=== PATIENT | male | born 1965 | race Caucasian/White ===

== ENCOUNTER 2018-06-01 07:32 | Observation (INO) ==
--- NOTE | 2018-06-01 07:53 | Emergency Department Note ---
Disposition Forms: ED Satisfaction Letter General Adult HPI - General Chief complaint: ED Chest Pain Stated complaint: Chest Pains Time Seen by Provider: 06/01/18 07:35 Source: patient - History of Present Illness Pain Scale: 3 - Related Data Home Medications Medication Instructions Recorded Confirmed Atorvastatin Calcium 05/05/18 Diltiazem 180 mg PO ONCE 05/05/18 05/05/18 Finasteride 5 mg PO DAILY 05/05/18 05/05/18 Ibuprofen 800 mg PO TIDWM 05/05/18 05/05/18 Lisinopril-HCTZ 20-12.5 12.5 - 20 mg PO ONCE 05/05/18 05/05/18 Methocarbamol 750 mg PO ONCE 05/05/18 05/05/18 Tamsulosin HCl 0.4 mg PO ONCE 05/05/18 05/05/18 Previous Rx's Medication Instructions Recorded Albuterol Sulfate [Albuterol 2 puff IH Q4HR #1 hfa.aer.ad 05/13/18 Inhaler] Promethazine/Dextromethorphan 5 ml PO Q6HR PRN #120 ml 05/13/18 [Promethazine-Dm Syrup] Allergies Allergy/AdvReac Type Severity Reaction Status Date / Time No Known Allergies Allergy Verified 05/13/18 08:41 Past Medical History - Past Medical History Medical history: Reports: hypertension - Social History Smoking Status: Never smoker Smokeless Tobacco Status: No Alcohol use: Reports: none Drug use: Reports: none Course Vital Signs Temperature 97.9 F 06/01/18 07:36 Pulse Rate 74 06/01/18 07:36 Respiratory Rate 14 06/01/18 07:36 Blood Pressure 154/96 06/01/18 07:36 O2 Sat by Pulse Oximetry 99 06/01/18 07:36 Temperature 97.9 F 06/01/18 07:36 Pulse Rate 74 06/01/18 07:36 Respiratory Rate 14 06/01/18 07:36 Blood Pressure 154/96 06/01/18 07:36 O2 Sat by Pulse Oximetry 99 06/01/18 07:36 Oxygen Delivery Oxygen Delivery Room Air Medical Decision Making - Lab Data Result diagrams: 06/01/18 07:36 06/01/18 07:36 Lab Results 06/01/18 06/01/18 06/01/18 Range/Units 07:36 07:36 07:58 WBC 15.3 H (4.3-11.1) K/mcL RBC 5.87 H (4.19-5.50) M/mcL Hgb 17.6 H (12.9-16.9) g/dL Hct 52.1 H (37.5-50.1) % MCV 88.8 (83.0-100.0) fL MCH 30.0 (28.0-33.3) pg MCHC 33.8 (31.6-35.5) g/dL RDW 14.7 H (11.5-14.5) % Plt Count 203 (140-400) K/mcL MPV 9.0 L (9.4-12.4) fL Immature Gran % 2.2 (0-4) % Seg Neutrophils % 75.3 % Lymphocytes % 14.9 % Monocytes % 5.8 % Eosinophils % 1.0 % Basophils % 0.8 % Neutrophils # 11.5 H (1.6-8.9) K/mcL Lymphocytes # 2.3 (0.6-4.6) K/mcL Monocytes # 0.9 (0.0-1.3) K/mcL Eosinophils # 0.2 (0.0-0.6) K/mcL Basophils # 0.1 (0.0-0.2) K/mcL Sodium 137 (136-145) mEq/L Potassium 4.1 (3.5-5.1) mEq/L Chloride 102 (98-107) mEq/L Carbon Dioxide 26 (23-29) mEq/L BUN 22 H (6-20) mg/dL Creatinine 1.02 (0.70-1.30) mg/dL Est GFR ( Amer) > 60 (> 60) Est GFR (Non-Af Amer) > 60 (> 60) BUN/Creatinine Ratio 22 (6-26) Glucose 145 H (70-105) mg/dL Calculated Osmolality 290 (280-300) Calcium 9.0 (8.6-10.3) mg/dL Troponin I < 0.03 (< 0.04) ng/mL B-Natriuretic Peptide 17 (Less than 100) pg/mL Lipase 15 (11-82) Units/L Attestation Statement - Attestation Attestation: I examined this patient and my medical decision-making was reviewed with the Resident Physician. I agree with the documented findings, disposition and treatment plan as described except to the extent set forth below. qq
[2018-06-01 08:13] LABS: Basophils # 0.1 K/mcL (0.0-0.2); Basophils % 0.8 %; Eosinophils # 0.2 K/mcL (0.0-0.6); Hematocrit 52.1 % (37.5-50.1); Hemoglobin 17.6 g/dL (12.9-16.9); Immature Granulocytes % 2.2 % (0-4); Lymphocytes # 2.3 K/mcL (0.6-4.6); Lymphocytes % 14.9 %; Mean Corpuscular HGB Conc 33.8 g/dL (31.6-35.5); Mean Corpuscular Volume 88.8 fL (83.0-100.0); Monocytes # 0.9 K/mcL (0.0-1.3); Monocytes % 5.8 %; Neutrophils # 11.5 K/mcL (1.6-8.9); Platelet Count 203 K/mcL (140-400); Red Blood Count 5.87 M/mcL (4.19-5.50); Red Cell Distribution Width 14.7 % (11.5-14.5); Segmented Neutrophils % 75.3 %
--- NOTE | 2018-06-01 08:15 | Emergency Department Note ---
Disposition Clinical Impression: Chest pain Qualifiers: Chest pain type: unspecified Qualified Code(s): R07.9 - Chest pain, unspecified Disposition: Admitted As Inpatient Condition: Fair General Adult HPI - General Chief complaint: ED Chest Pain Stated complaint: Chest Pains Time Seen by Provider: 06/01/18 07:35 Source: patient Mode of arrival: private vehicle Limitations: no limitations Nursing Notes Reviewed: Yes Vital Signs Reviewed: Yes - History of Present Illness HPI Narrative: Pt is a 52M with Pmhx HTN, chronic cough, HLPD, that was on his way to a bronchoscopy this morning when he experienced chest pain that lasted between 2-5 minutes with three separate episodes. He states that he has had these episodes before, but they are increasing in frequency. The last time he had these problems was Friday. He describes the pain as sharp in nature, located in the epigastrum, radiation into the bottom of his chest. He denies associated symptoms of nausea/vomiting, diaphoresis, lightheadedness. He denies lightheadedness with the pain specifically, but he states that he has been getting lightheaded frequently. He denies hx of smoking, alcohol, or illicit drugs. He states that his whole family has heart disease and many have had heart attacks. He denies pain at this moment. Pain Scale: 3 - Related Data Home Medications Medication Instructions Recorded Confirmed Atorvastatin Calcium 05/05/18 Diltiazem 180 mg PO ONCE 05/05/18 05/05/18 Finasteride 5 mg PO DAILY 05/05/18 05/05/18 Ibuprofen 800 mg PO TIDWM 05/05/18 05/05/18 Lisinopril-HCTZ 20-12.5 12.5 - 20 mg PO ONCE 05/05/18 05/05/18 Methocarbamol 750 mg PO ONCE 05/05/18 05/05/18 Tamsulosin HCl 0.4 mg PO ONCE 05/05/18 05/05/18 Previous Rx's Medication Instructions Recorded Albuterol Sulfate [Albuterol 2 puff IH Q4HR #1 hfa.aer.ad 05/13/18 Inhaler] Promethazine/Dextromethorphan 5 ml PO Q6HR PRN #120 ml 05/13/18 [Promethazine-Dm Syrup] Allergies Allergy/AdvReac Type Severity Reaction Status Date / Time No Known Allergies Allergy Verified 05/13/18 08:41 Review of Systems: All systems ED: reviewed and negative except as stated. Constitutional: Denies: chills Reports: fever/feeling warm ENT ED: Denies: ear pain, throat pain Cardiovascular: Denies: palpitations Reports: chest pain, leg swelling Respiratory: Reports: dry cough, dyspnea Gastrointestinal: Denies: abdominal pain, nausea, vomiting, diarrhea, constipation Genitourinary: Denies: urgency, dysuria, frequency Musculoskeletal: Reports: chronic back pain, chronic neck pain Integumentary: Denies: rash, abrasion Neurological: Denies: headache, weakness, numbness, paresthesias Psychiatric: Denies: anxiety, depression Endocrine: Denies: fatigue, heat or cold intolerance Hematological/Lymphatic: Denies: easy bleeding, easy bruising Allergic/Immunologic: Denies: facial swelling, urticaria Past Medical History - Past Medical History Medical history: Reports: hypertension - Social History Smoking Status: Never smoker Smokeless Tobacco Status: No Alcohol use: Reports: none Drug use: Reports: none Physical Exam General: A&O x 3. No acute distress. Well developed, well nourished, obese male. Head: atraumatic, normocephalic. ENT: No conjunctival injection, no scleral icterus. PERRLA. EOMI. Oropharynx non- erythematous. mucous membranes moist. Neuro: No focal deficits, no speech deficit, no facial droop, mentating well. BUE/BLE Str 5/5. Pulm: Lungs CTAB A/P. No wheezes, rales, ronchi. Cardio: RRR no m/r/g. Chest not tender to palpation. Abd: Soft, rounded. Normoactive bowel sounds. Non-tender to palpation. No guarding. Non rigid. Extremities: Radial pulses 2+ gordo, dorsalis pedis/posterior tibialis 2+ gordo. [place] LE 1+ pitting edema. No cyanosis, clubbing. Skin: warm, dry, intact. No rashes. Psych: Appropriate mood and affect. Answers questions appropriately. Cooperative with exam. Course Course Narrative: Pt has a hx of increasing frequency CP while at rest. Suspect unstable angina, but Ddx includes (but is not limited to): ACS, CHF, pancreatitis Workup to include: CBC, BMP, BNP, Lipase, EKG, CXR Vital Signs Temperature 97.9 F 06/01/18 07:36 Pulse Rate 74 06/01/18 07:36 Respiratory Rate 14 06/01/18 07:36 Blood Pressure 154/96 06/01/18 07:36 O2 Sat by Pulse Oximetry 99 06/01/18 07:36 Temperature 97.9 F 06/01/18 07:36 Pulse Rate 73 06/01/18 11:07 Respiratory Rate 16 06/01/18 11:07 Blood Pressure 123/67 06/01/18 11:07 O2 Sat by Pulse Oximetry 97 06/01/18 11:07 Oxygen Delivery Oxygen Delivery Room Air Medical Decision Making - MDM Narrative Medical decision making narrative: Pts workup failed to demonstrate cause of his pain - CXR was normal, troponin was undetectable, EKG did not show any signs concerning for ischemia. His chest pain did not recur while in the emergency department. However, given his story and strong family hx of cardiac issues, it was thought that he could benefit from further inpatient workup. He was admitted to hospitalist, Dr. Smith, who agreed to admit him to their service. Skiing Instructor Dr. Lopez was consulted and he agreed to see the patient. Patient was given an opportunity to ask questions at bedside and all of their concerns were addressed. Patient verbalized understanding and agreement with plan of care. Pt remained stable while in the department. - Medical Records Medical records reviewed: Yes I reviewed the patient's medical records. - Lab Data Lab results reviewed: Yes I reviewed the patient's lab results. Result diagrams: 06/01/18 07:36 06/01/18 07:36 Lab Results 06/01/18 06/01/18 06/01/18 Range/Units 07:36 07:36 07:58 WBC 15.3 H (4.3-11.1) K/mcL RBC 5.87 H (4.19-5.50) M/mcL Hgb 17.6 H (12.9-16.9) g/dL Hct 52.1 H (37.5-50.1) % MCV 88.8 (83.0-100.0) fL MCH 30.0 (28.0-33.3) pg MCHC 33.8 (31.6-35.5) g/dL RDW 14.7 H (11.5-14.5) % Plt Count 203 (140-400) K/mcL MPV 9.0 L (9.4-12.4) fL Immature Gran % 2.2 (0-4) % Seg Neutrophils % 75.3 % Lymphocytes % 14.9 % Monocytes % 5.8 % Eosinophils % 1.0 % Basophils % 0.8 % Neutrophils # 11.5 H (1.6-8.9) K/mcL Lymphocytes # 2.3 (0.6-4.6) K/mcL Monocytes # 0.9 (0.0-1.3) K/mcL Eosinophils # 0.2 (0.0-0.6) K/mcL Basophils # 0.1 (0.0-0.2) K/mcL Sodium 137 (136-145) mEq/L Potassium 4.1 (3.5-5.1) mEq/L Chloride 102 (98-107) mEq/L Carbon Dioxide 26 (23-29) mEq/L BUN 22 H (6-20) mg/dL Creatinine 1.02 (0.70-1.30) mg/dL Est GFR ( Amer) > 60 (> 60) Est GFR (Non-Af Amer) > 60 (> 60) BUN/Creatinine Ratio 22 (6-26) Glucose 145 H (70-105) mg/dL Calculated Osmolality 290 (280-300) Calcium 9.0 (8.6-10.3) mg/dL Total Bilirubin 0.4 (0.3-1.0) mg/dL Direct Bilirubin TNP Indirect Bilirubin Test Not Performed AST TNP ALT 52 (7-52) Units/L Alkaline Phosphatase 42 (34-104) Units/L Troponin I < 0.03 (< 0.04) ng/mL B-Natriuretic Peptide 17 (Less than 100) pg/mL Serum Total Protein 6.5 (6.4-8.9) g/dL Albumin 4.0 (3.5-5.7) g/dL Globulin 2.5 (2.4-3.5) g/dL Albumin/Globulin Ratio 1.6 (1.1-2.2) Lipase 15 (11-82) Units/L Urine Color (Yellow) Urine Clarity (Clear) Urine pH (5.0-8.0) pH Units Ur Specific [place] (1.010-1.025) Urine Protein (Neg-Trace) mg/dL Urine Glucose (UA) (Normal) mg/dL Urine Ketones (Negative) mg/dL Urine Blood (Negative) Urine Nitrite (Negative) Urine Bilirubin (Negative) Urine Urobilinogen (Normal) mg/dL Ur Leukocyte Esterase (Negative) Ur Culture Indicated? (NO) 06/01/18 Range/Units 09:22 WBC (4.3-11.1) K/mcL RBC (4.19-5.50) M/mcL Hgb (12.9-16.9) g/dL Hct (37.5-50.1) % MCV (83.0-100.0) fL MCH (28.0-33.3) pg MCHC (31.6-35.5) g/dL RDW (11.5-14.5) % Plt Count (140-400) K/mcL MPV (9.4-12.4) fL Immature Gran % (0-4) % Seg Neutrophils % % Lymphocytes % % Monocytes % % Eosinophils % % Basophils % % Neutrophils # (1.6-8.9) K/mcL Lymphocytes # (0.6-4.6) K/mcL Monocytes # (0.0-1.3) K/mcL Eosinophils # (0.0-0.6) K/mcL Basophils # (0.0-0.2) K/mcL Sodium (136-145) mEq/L Potassium (3.5-5.1) mEq/L Chloride (98-107) mEq/L Carbon Dioxide (23-29) mEq/L BUN (6-20) mg/dL Creatinine (0.70-1.30) mg/dL Est GFR ( Amer) (> 60) Est GFR (Non-Af Amer) (> 60) BUN/Creatinine Ratio (6-26) Glucose (70-105) mg/dL Calculated Osmolality (280-300) Calcium (8.6-10.3) mg/dL Total Bilirubin (0.3-1.0) mg/dL Direct Bilirubin Indirect Bilirubin AST ALT (7-52) Units/L Alkaline Phosphatase (34-104) Units/L Troponin I (< 0.04) ng/mL B-Natriuretic Peptide (Less than 100) pg/mL Serum Total Protein (6.4-8.9) g/dL Albumin (3.5-5.7) g/dL Globulin (2.4-3.5) g/dL Albumin/Globulin Ratio (1.1-2.2) Lipase (11-82) Units/L Urine Color Yellow (Yellow) Urine Clarity Clear (Clear) Urine pH 6.0 (5.0-8.0) pH Units Ur Specific [place] 1.016 (1.010-1.025) Urine Protein Negative (Neg-Trace) mg/dL Urine Glucose (UA) Normal (Normal) mg/dL Urine Ketones Negative (Negative) mg/dL Urine Blood Negative (Negative) Urine Nitrite Negative (Negative) Urine Bilirubin Negative (Negative) Urine Urobilinogen Normal (Normal) mg/dL Ur Leukocyte Esterase Negative (Negative) Ur Culture Indicated? NO (NO) - Radiology Data Radiology results reviewed: Yes I reviewed the patient's radiology results. Chest X-Ray 06/01/18 07:36 IMPRESSION: No acute process. D/ / Kleber Ackerman MD / Kleber Ackerman MD Interpreting Provider: Kleber Ackerman MD Chest CTA 06/01/18 09:05 IMPRESSION: Negative for pulmonary embolus. Minimal scarring or atelectasis in the lingula D/ / Praneeth Garcia MD / Praneeth Garcia MD Interpreting Provider: Praneeth Garcia MD - EKG Data EKG #1 EKG attestation: Yes I reviewed and interpreted this EKG. EKG results narrative: HR 82, rhythm sinus, axis normal. OH 142, QRS 77, QTc 415. No evidence of ST elevation or depression. No criteria for LVH. Heart Score - Score History: Moderately Suspicious EKG: Normal Age: 45-65 Risk Factors: Equal/Greater than 3 risk factor or history of atherosclerotic disease Troponin: Less than normal limit HEART Score Total: 4
[2018-06-01] MEDS ORDERED: Aspirin 325 MG TABLET PO ONE (08:19)
[2018-06-01 08:35] LABS: BUN/Creatinine Ratio 22 (6-26); Blood Urea Nitrogen 22 mg/dL (6-20); Carbon Dioxide 26 mEq/L (23-29); Chloride 102 mEq/L (98-107); Glucose 145 mg/dL (70-105); Lipase 15 Units/L (11-82); Osmolality,Calculated 290 (280-300); Potassium 4.1 mEq/L (3.5-5.1); Sodium 137 mEq/L (136-145); Troponin I < 0.03 ng/mL (< 0.04); eGFR For Non-African Americans > 60 (> 60)
--- NOTE | 2018-06-01 08:59 | Emergency Department Note ---
Disposition Clinical Impression: Chest pain Qualifiers: Chest pain type: unspecified Qualified Code(s): R07.9 - Chest pain, unspecified Disposition: Admitted As Inpatient Condition: Fair General Adult HPI - General Chief complaint: ED Chest Pain Stated complaint: Chest Pains Time Seen by Provider: 06/01/18 07:35 Source: patient Mode of arrival: private vehicle Limitations: no limitations - History of Present Illness Pain Scale: 3 - Related Data Home Medications Medication Instructions Recorded Confirmed Atorvastatin Calcium 20 mg PO DAILY 05/05/18 Diltiazem 180 mg PO ONCE 05/05/18 05/05/18 Finasteride 5 mg PO DAILY 05/05/18 05/05/18 Ibuprofen 800 mg PO TIDWM 05/05/18 05/05/18 Lisinopril-HCTZ 20-12.5 12.5 - 20 mg PO ONCE 05/05/18 05/05/18 Methocarbamol 750 mg PO ONCE 05/05/18 05/05/18 Tamsulosin HCl 0.4 mg PO ONCE 05/05/18 05/05/18 Previous Rx's Medication Instructions Recorded Albuterol Sulfate [Albuterol 2 puff IH Q4HR #1 hfa.aer.ad 05/13/18 Inhaler] Promethazine/Dextromethorphan 5 ml PO Q6HR PRN #120 ml 05/13/18 [Promethazine-Dm Syrup] Allergies Allergy/AdvReac Type Severity Reaction Status Date / Time No Known Allergies Allergy Verified 05/13/18 08:41 Past Medical History - Past Medical History Medical history: Reports: hypertension - Social History Smoking Status: Never smoker Smokeless Tobacco Status: No Alcohol use: Reports: none Drug use: Reports: none Physical Exam - General Limitations: no limitations Course Vital Signs Temperature 97.9 F 06/01/18 07:36 Pulse Rate 74 06/01/18 07:36 Respiratory Rate 14 06/01/18 07:36 Blood Pressure 154/96 06/01/18 07:36 O2 Sat by Pulse Oximetry 99 06/01/18 07:36 Temperature 97.9 F 06/01/18 07:36 Pulse Rate 73 06/01/18 11:07 Respiratory Rate 16 06/01/18 12:35 Blood Pressure 120/79 06/01/18 12:35 O2 Sat by Pulse Oximetry 97 06/01/18 11:07 Oxygen Delivery Oxygen Delivery Room Air Medical Decision Making - Lab Data Result diagrams: 06/01/18 07:36 06/01/18 07:36 Lab Results 06/01/18 06/01/18 06/01/18 Range/Units 07:36 07:36 07:58 WBC 15.3 H (4.3-11.1) K/mcL RBC 5.87 H (4.19-5.50) M/mcL Hgb 17.6 H (12.9-16.9) g/dL Hct 52.1 H (37.5-50.1) % MCV 88.8 (83.0-100.0) fL MCH 30.0 (28.0-33.3) pg MCHC 33.8 (31.6-35.5) g/dL RDW 14.7 H (11.5-14.5) % Plt Count 203 (140-400) K/mcL MPV 9.0 L (9.4-12.4) fL Immature Gran % 2.2 (0-4) % Seg Neutrophils % 75.3 % Lymphocytes % 14.9 % Monocytes % 5.8 % Eosinophils % 1.0 % Basophils % 0.8 % Neutrophils # 11.5 H (1.6-8.9) K/mcL Lymphocytes # 2.3 (0.6-4.6) K/mcL Monocytes # 0.9 (0.0-1.3) K/mcL Eosinophils # 0.2 (0.0-0.6) K/mcL Basophils # 0.1 (0.0-0.2) K/mcL Sodium 137 (136-145) mEq/L Potassium 4.1 (3.5-5.1) mEq/L Chloride 102 (98-107) mEq/L Carbon Dioxide 26 (23-29) mEq/L BUN 22 H (6-20) mg/dL Creatinine 1.02 (0.70-1.30) mg/dL Est GFR ( Amer) > 60 (> 60) Est GFR (Non-Af Amer) > 60 (> 60) BUN/Creatinine Ratio 22 (6-26) Glucose 145 H (70-105) mg/dL Calculated Osmolality 290 (280-300) Calcium 9.0 (8.6-10.3) mg/dL Total Bilirubin 0.4 (0.3-1.0) mg/dL Direct Bilirubin TNP Indirect Bilirubin Test Not Performed AST TNP ALT 52 (7-52) Units/L Alkaline Phosphatase 42 (34-104) Units/L Troponin I < 0.03 (< 0.04) ng/mL B-Natriuretic Peptide 17 (Less than 100) pg/mL Serum Total Protein 6.5 (6.4-8.9) g/dL Albumin 4.0 (3.5-5.7) g/dL Globulin 2.5 (2.4-3.5) g/dL Albumin/Globulin Ratio 1.6 (1.1-2.2) Lipase 15 (11-82) Units/L Urine Color (Yellow) Urine Clarity (Clear) Urine pH (5.0-8.0) pH Units Ur Specific [place] (1.010-1.025) Urine Protein (Neg-Trace) mg/dL Urine Glucose (UA) (Normal) mg/dL Urine Ketones (Negative) mg/dL Urine Blood (Negative) Urine Nitrite (Negative) Urine Bilirubin (Negative) Urine Urobilinogen (Normal) mg/dL Ur Leukocyte Esterase (Negative) Ur Culture Indicated? (NO) 06/01/18 Range/Units 09:22 WBC (4.3-11.1) K/mcL RBC (4.19-5.50) M/mcL Hgb (12.9-16.9) g/dL Hct (37.5-50.1) % MCV (83.0-100.0) fL MCH (28.0-33.3) pg MCHC (31.6-35.5) g/dL RDW (11.5-14.5) % Plt Count (140-400) K/mcL MPV (9.4-12.4) fL Immature Gran % (0-4) % Seg Neutrophils % % Lymphocytes % % Monocytes % % Eosinophils % % Basophils % % Neutrophils # (1.6-8.9) K/mcL Lymphocytes # (0.6-4.6) K/mcL Monocytes # (0.0-1.3) K/mcL Eosinophils # (0.0-0.6) K/mcL Basophils # (0.0-0.2) K/mcL Sodium (136-145) mEq/L Potassium (3.5-5.1) mEq/L Chloride (98-107) mEq/L Carbon Dioxide (23-29) mEq/L BUN (6-20) mg/dL Creatinine (0.70-1.30) mg/dL Est GFR ( Amer) (> 60) Est GFR (Non-Af Amer) (> 60) BUN/Creatinine Ratio (6-26) Glucose (70-105) mg/dL Calculated Osmolality (280-300) Calcium (8.6-10.3) mg/dL Total Bilirubin (0.3-1.0) mg/dL Direct Bilirubin Indirect Bilirubin AST ALT (7-52) Units/L Alkaline Phosphatase (34-104) Units/L Troponin I (< 0.04) ng/mL B-Natriuretic Peptide (Less than 100) pg/mL Serum Total Protein (6.4-8.9) g/dL Albumin (3.5-5.7) g/dL Globulin (2.4-3.5) g/dL Albumin/Globulin Ratio (1.1-2.2) Lipase (11-82) Units/L Urine Color Yellow (Yellow) Urine Clarity Clear (Clear) Urine pH 6.0 (5.0-8.0) pH Units Ur Specific [place] 1.016 (1.010-1.025) Urine Protein Negative (Neg-Trace) mg/dL Urine Glucose (UA) Normal (Normal) mg/dL Urine Ketones Negative (Negative) mg/dL Urine Blood Negative (Negative) Urine Nitrite Negative (Negative) Urine Bilirubin Negative (Negative) Urine Urobilinogen Normal (Normal) mg/dL Ur Leukocyte Esterase Negative (Negative) Ur Culture Indicated? NO (NO) Attestation Statement - Attestation Attestation: I examined this patient and my medical decision-making was reviewed with the Resident Physician. I agree with the documented findings, disposition and treatment plan as described except to the extent set forth below. Patient presents to the ED with a chief complaint of chest pain. Patient describes this sharp pain in his lower chest that shoots to his jaws. He is been having episodes of increase in frequency. Patient went to have an out patient test done today and experienced the pain going home. Patient is also being worked up for a lung problem and is scheduled for bronchoscopy tomorrow. He is in no acute distress on examination. Lungs sounds diminished. Heart regular. He does have some pedal edema. Plan. Cardiac workup. Troponin negative. Patient has a heart score 4. Admitted for further cardiac workup. EKG normal sinus at 82. Normal ST segments. Normal T waves. Normal axis. QTC 4:15. Unchanged from prior EKG.
[2018-06-01 09:53] LABS: Bilirubin,Urine Negative (Negative); Blood,Urine Negative (Negative); Clarity,Urine Clear (Clear); Color,Urine Yellow (Yellow); Glucose,Urine (UA) Normal (Normal); Ketones,Urine Negative (Negative); Leukocyte Esterase,Urine Negative (Negative); Nitrite,Urine Negative (Negative); Protein,Urine Negative (Neg-Trace); Specific Gravity,Urine 1.016 (1.010-1.025); Urobilinogen,Urine Normal (Normal)
[2018-06-01] MEDS: Isovue-370 500 ML BOTTLE IVP ONE (09:56)
[2018-06-01 10:11] LABS: Alanine Aminotransferase 52 Units/L (7-52); Albumin/Globulin Ratio 1.6 (1.1-2.2); Alkaline Phosphatase 42 Units/L (34-104); Bilirubin,Total 0.4 mg/dL (0.3-1.0); Globulin 2.5 g/dL (2.4-3.5); Total Protein 6.5 g/dL (6.4-8.9)
[2018-06-01] MEDS ORDERED: Naloxone 0.4 MG/ML INJ IVP PRN (12:34)
[2018-06-01] MEDS ORDERED: Acetaminophen 325 MG TABLET PO PRN (12:34)
[2018-06-01] MEDS ORDERED: GI Cocktail 40 ML EACH PO ONE (12:36)
--- NOTE | 2018-06-01 13:08 | Internal Med History&Physical ---
Date of Encounter: 06/01/18 Time of Encounter: 11:45 Internal Medicine - H&P: HPI Chief complaint: Chest pain Admitted From: Emergency Dept Plans for Post Hospital Care: Home History of present illness: Mr. Cain is a 52 year old male with past medical history of obesity, BMI 37, borderline YUMIKO, potential COPD still undiagnosed who presented with chest pain to the ER. The patient states that he was driving at around 7:30 AM when he noticed he had sharp chest pain which started in both his jaws and neck region and then radiated down both arms it is described as sharp, on a scale of 1-10 being 8/10 not reproducible, no alleviating or aggravating factors and lasted for roughly about 10-15 seconds and then got better. Right about 15 minutes later the pain happened again and this is when he decided to come to the ER. He does state that he has had this pain several months ago one time and woke him up from sleep at around 3 AM. He denies any nausea or vomiting. He denies any diaphoresis and currently is pain-free .he has been treated and being extensively worked up for COPD and an outpatient. He has taken prednisone tapers and currently is on the second prednisone taper for the last several months. He also tells me that he does note at night and does wake up several times but has never been diagnosed with sleep apnea. He also admits to taking ibuprofen 800 mg up to 3 times a day when necessary for pain in his back. Of note, the patient has had a chronic cough for last several months which has led to his being worked up for COPD. The patient's cough has been nonproductive but of late he has started to have some hemoptysis for which a bronchoscopy is planned tomorrow Past Med Surg Social Fam HX - Past Medical History Medical history: hypertension - Past Surgical History Surgical History: no surgical history - Social History Smoking Status: Never smoker Smokeless Tobacco Status: No Alcohol use: none Drug use: none - Family History Father Adopted: No Hx Family Cardiac Disorders: No Internal Medicine - H&P: Meds Atorvastatin Calcium 20 mg PO DAILY 05/05/18 [History] Diltiazem 180 mg PO ONCE 05/05/18 [History] Finasteride 5 mg PO DAILY 05/05/18 [History] Ibuprofen 800 mg PO TIDWM 05/05/18 [History] Lisinopril-HCTZ 20-12.5 12.5 - 20 mg PO ONCE 05/05/18 [History] Methocarbamol 750 mg PO ONCE 05/05/18 [History] Tamsulosin HCl 0.4 mg PO ONCE 05/05/18 [History] Albuterol Sulfate [Albuterol Inhaler] 2 puff IH Q4HR #1 hfa.aer.ad 05/13/18 [Rx] Promethazine/Dextromethorphan [Promethazine-Dm Syrup] 5 ml PO Q6HR PRN #120 ml 05/13/18 [Rx] Allergy/AdvReac Type Severity Reaction Status Date / Time No Known Allergies Allergy Verified 05/13/18 08:41 All Systems PM: A 10-system review of systems was performed and is negative for pertinent findings except as documented above in the HPI. - Constitutional Vitals: Temp Pulse Resp BP Pulse Ox 97.9 F 73 16 120/79 97 06/01/18 07:36 06/01/18 11:07 06/01/18 12:35 06/01/18 12:35 06/01/18 11:07 Exam: GENERAL: Alert, moderate distress, cooperative EYES: PERRLA, EOMI EARS: External ears normal, canals clear OROPHARYNX: Lips, mucosa, and tongue normal. Teeth and gums normal. Oropharynx normal. NECK: No jugulovenous distention, No carotid bruits, Carotid pulse normal contour, Supple LUNGS: Lungs clear to auscultation, Good diaphragmatic excursion CARDIAC: Normal S1 and S2; no rubs, murmurs, or gallops ABDOMEN: Abdomen soft, non-tender, BS normal, No masses or organomegaly EXTREMITIES: 1+ pitting edema bilateral lower extremity NEURO: Gait normal. Reflexes normal and symmetric. Sensation grossly intact, Cranial nerves II-XII intact PULSES: 2+ radial, 2+ carotid Rest of the exam is non contributory Internal Med - H&P Results - Labs CBC & Chem 7: 06/01/18 07:36 06/01/18 07:36 Labs: Short CBC 06/01/18 Range/Units 07:36 WBC 15.3 H (4.3-11.1) K/mcL Hgb 17.6 H (12.9-16.9) g/dL Hct 52.1 H (37.5-50.1) % Plt Count 203 (140-400) K/mcL Neutrophils # 11.5 H (1.6-8.9) K/mcL BMP 06/01/18 07:36 Sodium 137 Potassium 4.1 Chloride 102 Carbon Dioxide 26 BUN 22 H Creatinine 1.02 Glucose 145 H Calcium 9.0 Cardiac Enzymes 06/01/18 Range/Units 07:36 Troponin I < 0.03 (< 0.04) ng/mL Liver Function 06/01/18 Range/Units 07:36 Total Bilirubin 0.4 (0.3-1.0) mg/dL Direct Bilirubin TNP AST TNP ALT 52 (7-52) Units/L Alkaline Phosphatase 42 (34-104) Units/L Albumin 4.0 (3.5-5.7) g/dL Urine 06/01/18 Range/Units 09:22 Urine Color Yellow (Yellow) Urine Clarity Clear (Clear) Urine pH 6.0 (5.0-8.0) pH Units Ur Specific [place] 1.016 (1.010-1.025) Urine Protein Negative (Neg-Trace) mg/dL Urine Glucose (UA) Normal (Normal) mg/dL - EKG Data -: EKG Interpreted by Myself EKG shows normal: sinus rhythm Rate: normal - EKG Data Prior EKG available for review: no - Impressions ITS Impressions Chest X-Ray 06/01/18 07:36 IMPRESSION: No acute process. D/ / Kleber Ackerman MD / Kleber Ackerman MD Interpreting Provider: Kleber Ackerman MD Chest CTA 06/01/18 09:05 IMPRESSION: Negative for pulmonary embolus. Minimal scarring or atelectasis in the lingula D/ / Praneeth Garcia MD / Praneeth Garcia MD Interpreting Provider: Praneeth Garcia MD - Assessment and Plan (1) Chest pain Current Visit: Yes Status: Acute Assessment and plan: Seems to be noncardiac atypical pain at this point. Official diagnoses include acute coronary syndrome versus GERD/esophagitis in the setting of chronic steroid use and NSAID use. I will place him on telemetry monitoring and cycle serial cardiac enzymes. His initial EKG does not suggest any ST elevation or depression and first set of troponin is negative. His medication reconciliation is not yet complete however he does tell me he takes antihypertensives as well as a cholesterol pill that he does have risk factors. I also believe that GERD/esophagitis may be contributing to his chest pain given the characteristic of the pain in the setting of chronic steroid use as well as NSAIDs. I will start him on a PPI and give him a GI cocktail. Continue to monitor closely. Hemodynamically the patient appears stable Qualifiers: Chest pain type: other chest pain Qualified Code(s): R07.89 - Other chest pain; R07.8 - Other chest pain (2) Chronic cough Current Visit: Yes Status: Acute Assessment and plan: Chronic cough which is being blocked up as an outpatient by pulmonology. He is planned to undergo bronchoscopy tomorrow for new hemoptysis. If he has untreated GERD, this could also lead to cough variant Presentation I suggest that if his bronchoscopy is negative then consider EGD as an outpatient. We will continue when necessary bronchodilators once reconciled by pharmacy technicians (3) Morbid obesity due to excess calories Current Visit: Yes Status: Acute Assessment and plan: He has been counseled regarding controlling his weight and dietary intake - Time Spent With Patient Total time spent is greater than 50% in coordination of care (as documented) at patient's floor/unit and/or counseling patient: Greater than 35 minutes
[2018-06-02 01:38] LABS: Basophils # 0.1 K/mcL (0.0-0.2); Basophils % 0.5 %; Eosinophils # 0.1 K/mcL (0.0-0.6); Eosinophils % 0.7 %; Hematocrit 49.7 % (37.5-50.1); Hemoglobin 16.9 g/dL (12.9-16.9); Immature Granulocytes % 1.3 % (0-4); Lymphocytes # 3.3 K/mcL (0.6-4.6); Lymphocytes % 18.9 %; Mean Corpuscular Hemoglobin 30.1 pg (28.0-33.3); Mean Corpuscular Volume 88.4 fL (83.0-100.0); Monocytes # 1.7 K/mcL (0.0-1.3); Monocytes % 9.5 %; Neutrophils # 12.2 K/mcL (1.6-8.9); Platelet Count 220 K/mcL (140-400); Red Blood Count 5.62 M/mcL (4.19-5.50); Red Cell Distribution Width 14.7 % (11.5-14.5); Segmented Neutrophils % 69.1 %
[2018-06-02 01:53] LABS: BUN/Creatinine Ratio 23 (6-26); Blood Urea Nitrogen 24 mg/dL (6-20); Calcium 8.9 mg/dL (8.6-10.3); Carbon Dioxide 27 mEq/L (23-29); Chloride 101 mEq/L (98-107); Glucose 145 mg/dL (70-105); Osmolality,Calculated 291 (280-300); Potassium 3.8 mEq/L (3.5-5.1); Sodium 137 mEq/L (136-145); eGFR For Non-African Americans > 60 (> 60)
[2018-06-02 04:27] LABS: Adenovirus Not Detected (Not Detect); Bordetella Pertussis Not Detected (Not Detect); Chlamydophila pneumoniae Not Detected (Not Detect); Coronavirus 229E Not Detected (Not Detect); Coronavirus HKU1 Not Detected (Not Detect); Coronavirus NL63 Not Detected (Not Detect); Coronavirus OC43 Not Detected (Not Detect); Human Metapneumovirus Not Detected (Not Detect); Human Rhinovirus/Enterovirus Not Detected (Not Detect); Influenza A Subtype 2009 H1 Not Detected (Not Detect); Influenza A Untypeable Not Detected (Not Detect); Influenza B Not Detected (Not Detect); Mycoplasma pneumoniae Not Detected (Not Detect); Parainfluenza Virus 1 Not Detected (Not Detect); Parainfluenza Virus 2 Not Detected (Not Detect); Parainfluenza Virus 3 Not Detected (Not Detect); Parainfluenza Virus 4 Not Detected (Not Detect); Respiratory Syncytial Virus Not Detected (Not Detect)
--- NOTE | 2018-06-02 07:13 | Electrocardiograph Report ---
[facility] Test Date: 2018-06-01 Pat Name: Ranjan Cain Department: EXAM19 Room: 3B Gender: M Warp Trucker: : 1965 Requested By: Anil Pacheco Order Number: [id number] Reading MD: Phil Sullivan Measurements Intervals [place] Rate: 82 P: 67 FL: 142 QRS: 32 QRSD: 77 T: 41 QT: 355 QTc: 415 Interpretive Statements Sinus rhythm Electronically Signed On 06-02-2018 7:11:34 EDT by Phil Sullivan
[2018-06-02] MEDS ORDERED: Ibuprofen 800 MG TABLET PO PRN (08:59)
[2018-06-02] MEDS ORDERED: predniSONE 20 MG TABLET PO SCH (09:00)
[2018-06-02] MEDS ORDERED: Diltiazem CD (24hr) 180 MG CAPSULE PO SCH (09:00)
[2018-06-02] MEDS ORDERED: Lisinopril-HCTZ 20-12.5mg TABLET PO SCH (09:00)
[2018-06-02] MEDS ORDERED: TESTOSTERONE CYPIONATE 400 MG IM SCH (09:00)
[2018-06-02 15:20] VITALS: BP 132/79
--- NOTE | 2018-06-02 16:13 | Discharge Summary ---
- NOTES TO OUTPATIENT PROVIDER Notes to Outpatient Provider: Follow up with PCP in one week. Follow-up with jewel inserter Dr. Dominguez as scheduled for your Bronchoscope Date of Encounter: 06/02/18 Time of Encounter: 16:08 - Discharge Diagnosis (1) Chest pain Priority: Primary Status: Acute Qualifiers: Chest pain type: other chest pain Qualified Code(s): R07.89 - Other chest pain; R07.8 - Other chest pain (2) Chronic cough Priority: Primary Status: Acute (3) Morbid obesity due to excess calories Priority: Secondary Status: Acute (4) GERD (gastroesophageal reflux disease) Priority: Secondary Status: Acute Qualifiers: Esophagitis presence: without esophagitis Qualified Code(s): K21.9 - Gastro-esophageal reflux disease without esophagitis (5) HTN (hypertension) Priority: Secondary Status: Acute Qualifiers: Hypertension type: essential hypertension Qualified Code(s): I10 - Essential (primary) hypertension Hospital course: Mr. Cain is a 52 year old male with past medical history of obesity, borderline YUMIKO,HTN, COPD, not on home O2 and possible GERD who sánchez sbeen having chronic and hemoptysis from last 3 weeks following with jewel inserter as an out pt, supposedly have to go for bronchoscope now he presented to ER with intermittent chest pain. He was admitted in the hospital and placed him on surveillance system monitor. His serial troponin came back as negative. He still having cough. His chest pain seems to most likely due to his chronic bronchitis with cough, however since he is high risk for ACS he did go for stress echocardiogram. His distress echo came back is negative for any ischemia. So will discharge him home in a stable condition today. Recommend him to follow up with jewel inserter and go for bronchoscope as scheduled. Also recommended to continue PO Steroids as directed by Pulm. Also started him on Prilosec 20mg BID. - Time Spent with Patient Total time spent providing and/or coordinating discharge services: - Discharge Medications Prescriptions: New GuaiFENesin/Dextromethorphan [Robitussin/Dm] 10 ml PO Q6H PRN #240 ml PRN Reason: Cough Omeprazole [PriLOSEC] 20 mg PO BIDAC #60 capsule. Continue Lisinopril-HCTZ 20-12.5 [Prinzide 20-12.5] 1 tab PO DAILY Testosterone Cypionate [Depo-Testosterone] 400 mg IM Q3W predniSONE [PredniSONE] See Taper PO TAPER Diltiazem HCl [Cardizem LA] 180 mg PO DAILY Atorvastatin Calcium [Lipitor] 20 mg PO DAILY Albuterol Sulfate [Albuterol Inhaler] 2 puff IH Q4HR PRN PRN Reason: Shortness Of Breath Discontinued Ibuprofen [Ibu] 800 mg PO TID PRN PRN Reason: Pain Home Medications: Albuterol Sulfate [Albuterol Inhaler] 2 puff IH Q4HR PRN 06/01/18 [History] Atorvastatin Calcium [Lipitor] 20 mg PO DAILY 06/01/18 [History] Diltiazem HCl [Cardizem LA] 180 mg PO DAILY 06/01/18 [History] Lisinopril-HCTZ 20-12.5 [Prinzide 20-12.5] 1 tab PO DAILY 06/01/18 [History] Testosterone Cypionate [Depo-Testosterone] 400 mg IM Q3W 06/01/18 [History] predniSONE [PredniSONE] See Taper PO TAPER 06/01/18 [History] GuaiFENesin/Dextromethorphan [Robitussin/Dm] 10 ml PO Q6H PRN #240 ml 06/02/18 [Rx] Omeprazole [PriLOSEC] 20 mg PO BIDAC #60 capsule. 06/02/18 [Rx] Allergies/Adverse Reactions: Allergy/AdvReac Type Severity Reaction Status Date / Time No Known Allergies Allergy Verified 05/13/18 08:41 Date of admission: 06/01/18 11:57 Primary care physician: Prudence Umaña MD - Constitutional Vitals: Temp Pulse Resp BP Pulse Ox 97.9 F 94 20 132/79 94 06/02/18 15:20 06/02/18 15:20 06/02/18 15:20 06/02/18 15:20 06/02/18 15:20 General appearance: Present: A&O X 3, no acute distress, answers questions appropriately Exam: Gen: Alert, awake, Oriented to time,place and person Chest: Diminished breath sounds B/L, No wheezing, No crackles, No rales Heart: S1S2+ RRR No murmurs Abd: Soft, NT, BS +, No organomegaly Ext: No edema, pulses are palpable, No calf tenderness Neuro : Benign findings Skin: No rash. - Patient Status Disposition: Home, Self-Care Condition: Good Overall status at discharge: patient is back to baseline - Discharge Instructions Follow Up With: Prudence Umaña MD [Primary Care Provider] - Cathy Dominguez MD [Partnered Physician] - - Diet and Activity Activity: increase activity as tolerated Diet: low salt diet - VTE Documentation of Mechanical Device: Intermittent pneumatic compression device
== END 2018-06-02 17:00 | disposition home or self-care (01) ==
LOC: EMEROOARM 07:32 → 3BNU 07:32
PROVIDERS: ADMIT Hospitalist; ATTEND Hospitalist

== ENCOUNTER 2021-01-31 00:08 | Observation (INO) ==
[2021-01-31] MEDS ORDERED: Isovue-370 500 ML BOTTLE IVP ONE (00:21)
[2021-01-31] MEDS ORDERED: Pantoprazole 40 MG VIAL IVP STA (00:28)
[2021-01-31] MEDS ORDERED: Octreotide 400 MCG in 0.9 % Sodium Chloride 100 ML IVC SCH (00:30)
[2021-01-31 00:49] LABS: Basophils # 0.1 K/mcL (0.0-0.2); Eosinophils # 0.4 K/mcL (0.0-0.6); Eosinophils % 2.6 %; Hematocrit 54.3 % (37.5-50.1); Immature Granulocytes % 0.7 % (0-4); Lymphocytes # 2.5 K/mcL (0.6-4.6); Lymphocytes % 18.3 %; Mean Corpuscular HGB Conc 33.1 g/dL (31.6-35.5); Mean Corpuscular Hemoglobin 29.3 pg (28.0-33.3); Mean Corpuscular Volume 88.3 fL (83.0-100.0); Mean Platelet Volume 9.1 fL (9.4-12.4); Monocytes # 1.5 K/mcL (0.0-1.3); Monocytes % 10.8 %; Neutrophils # 9.1 K/mcL (1.6-8.9); Platelet Count 240 K/mcL (140-400); Red Blood Count 6.15 M/mcL (4.19-5.50); Red Cell Distribution Width 14.5 % (11.5-14.5); Segmented Neutrophils % 66.6 %; White Blood Count 13.6 K/mcL (4.3-11.1)
[2021-01-31 01:04] LABS: Alanine Aminotransferase 40 Units/L (7-52); Albumin 4.4 g/dL (3.5-5.7); Albumin/Globulin Ratio 1.8 (1.1-2.2); Alkaline Phosphatase 58 Units/L (34-104); Amylase 40 Units/L (29-103); Aspartate Amino Transferase 22 Units/L (13-39); BUN/Creatinine Ratio 19 (6-26); Bilirubin,Total 0.6 mg/dL (0.3-1.0); Blood Urea Nitrogen 21 mg/dL (6-20); Calcium 9.5 mg/dL (8.6-10.3); Carbon Dioxide 26 mEq/L (23-29); Chloride 105 mEq/L (98-107); Globulin 2.4 g/dL (2.4-3.5); Glucose 121 mg/dL (70-105); Lipase 27 Units/L (11-82); Osmolality,Calculated 290 (280-300); Potassium 3.8 mEq/L (3.5-5.1); Sodium 138 mEq/L (136-145); Total Protein 6.8 g/dL (6.4-8.9); eGFR For African Americans > 60 (> 60); eGFR For Non-African Americans > 60 (> 60)
[2021-01-31] MEDS ORDERED: 0.9 % Sodium Chloride 1,000 ML IV ONE (01:10)
[2021-01-31 02:03] LABS: Influenza A PCR Negative (Negative); Influenza B PCR Negative (Negative); Resp. Syncytial Virus PCR Negative (Negative)
[2021-01-31 02:08] LABS: SARS-CoV-2 by PCR (In House) Negative (Negative)
[2021-01-31 04:14] LABS: Basophils # 0.1 K/mcL (0.0-0.2); Basophils % 0.9 %; Eosinophils # 0.3 K/mcL (0.0-0.6); Eosinophils % 1.8 %; Hematocrit 51.7 % (37.5-50.1); Immature Granulocytes % 0.9 % (0-4); Lymphocytes # 1.9 K/mcL (0.6-4.6); Lymphocytes % 13.9 %; Mean Corpuscular HGB Conc 32.9 g/dL (31.6-35.5); Mean Corpuscular Hemoglobin 29.3 pg (28.0-33.3); Mean Platelet Volume 9.4 fL (9.4-12.4); Monocytes # 1.2 K/mcL (0.0-1.3); Monocytes % 8.4 %; Neutrophils # 10.1 K/mcL (1.6-8.9); Platelet Count 225 K/mcL (140-400); Red Blood Count 5.81 M/mcL (4.19-5.50); Red Cell Distribution Width 14.5 % (11.5-14.5); Segmented Neutrophils % 74.1 %; White Blood Count 13.7 K/mcL (4.3-11.1)
[2021-01-31] MEDS ORDERED: Ondansetron 4 MG/2 ML VIAL IVP PRN (04:35)
[2021-01-31] MEDS ORDERED: Naloxone 0.4 MG/ML INJ IVP PRN (04:35)
[2021-01-31] MEDS: Pantoprazole 40 MG in 0.9 % Sodium Chloride Mini Bag 100 ML IVC SCH ×2 (04:46→12:20)
[2021-01-31] MEDS: Acetaminophen IV 1,000 MG/100 ML BAG IVPB SCH ×3 (05:15→18:39)
[2021-01-31 05:31] LABS: Bilirubin,Urine Negative (Negative); Blood,Urine Moderate (Negative); Clarity,Urine Clear (Clear); Color,Urine Colorless (Yellow); Glucose,Urine (UA) Normal (Normal); Ketones,Urine Negative (Negative); Leukocyte Esterase,Urine Negative (Negative); Mucus,Urine Few per lpf (None-Few); Nitrite,Urine Negative (Negative); Protein,Urine Negative (Neg-Trace); RBC,Urine TNTC per hpf (0-3); Specific Gravity,Urine > 1.030 (1.010-1.025); Urobilinogen,Urine Normal (Normal); WBC,Urine 0-3 per hpf (0-3)
[2021-01-31 08:03] LABS: Hematocrit 50.9 % (37.5-50.1); Hemoglobin 16.5 g/dL (12.9-16.9)
[2021-01-31 08:16] LABS: INR 1.1; Prothrombin Time 12.3 Seconds (9.4-12.1)
[2021-01-31 09:18] LABS: Hematocrit 51.9 % (37.5-50.1); Hemoglobin 17.2 g/dL (12.9-16.9)
[2021-01-31 11:03] LABS: Hemoglobin 15.8 g/dL (12.9-16.9)
[2021-01-31] MEDS ORDERED: Lidocaine -MPF 2% 5 ML VIAL ONE (14:11)
[2021-01-31 23:17] LABS: Hemoglobin 14.8 g/dL (12.9-16.9)
[2021-02-01] MEDS: Acetaminophen IV 1,000 MG/100 ML BAG IVPB SCH ×2 (00:37→06:39)
[2021-02-01 05:08] LABS: Hematocrit 44.2 % (37.5-50.1); Hemoglobin 14.9 g/dL (12.9-16.9); Mean Corpuscular HGB Conc 33.7 g/dL (31.6-35.5); Mean Corpuscular Hemoglobin 30.3 pg (28.0-33.3); Mean Platelet Volume 9.5 fL (9.4-12.4); Platelet Count 213 K/mcL (140-400); Red Blood Count 4.91 M/mcL (4.19-5.50); Red Cell Distribution Width 14.7 % (11.5-14.5); White Blood Count 11.2 K/mcL (4.3-11.1)
[2021-02-01 05:45] LABS: BUN/Creatinine Ratio 16 (6-26); Blood Urea Nitrogen 16 mg/dL (6-20); Calcium 8.1 mg/dL (8.6-10.3); Carbon Dioxide 27 mEq/L (23-29); Chloride 106 mEq/L (98-107); Chol/HDL Ratio 5.1 (0-4.9); Cholesterol 137 mg/dL (< 200); Glucose 119 mg/dL (70-105); HDL Cholesterol 27 mg/dL (40-59); LDL Cholesterol,Calculated 60 mg/dL (< 100); Magnesium 2.1 mg/dL (1.6-2.6); Osmolality,Calculated 290 (280-300); Potassium 3.8 mEq/L (3.5-5.1); Sodium 139 mEq/L (136-145); Triglycerides 252 mg/dL (< 150); eGFR For African Americans > 60 (> 60); eGFR For Non-African Americans > 60 (> 60)
[2021-02-01 07:11] LABS: Estimated Average Glucose 126 mg/dl
[2021-02-01 07:41] VITALS: BP 154/83; PULSE 79; TEMP 97.7; O2SAT 96
== END 2021-02-01 11:01 | disposition home or self-care (01) ==
LOC: EMEROOARM 00:08 → 4WAOSI 00:08 → SUATTDRO 03:10 → 4WAOSI 04:27
PROVIDERS: ADMIT Internal Medicine; ATTEND Student in an Organized Health Care Education/Training Program